=== PATIENT | female | born 1950 | race Caucasian/White ===

== ENCOUNTER 2019-06-13 19:28 | Emergency (ER) | payer MEDICARE, MEDICAID ==
[2019-06-13] MEDS ORDERED: Lidocaine 2% w/ EPI 1:200,000* 20 ML SDV VIAL ONE (19:38)
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
[2019-06-13] MEDS ORDERED: Lidocaine 2% w/ EPI 1:200,000* 20 ML SDV VIAL INJ ONE (19:44)
[2019-06-13] MEDS ORDERED: Tetan/Diph/Pertus SYR(Tdap)* 0.5 ML SYR(BOOSTRIX) use SYR contains LATEX IM ONE (20:47)
[2019-06-13 22:01] VITALS: BP 105/74
== END 2019-06-13 22:01 | disposition home or self-care (01) ==
LOC: ED 19:28
DX: S01.81XA Laceration without foreign body of other part of head, initial encounter (principal); I10 Essential (primary) hypertension; E78.00 Pure hypercholesterolemia, unspecified; I48.91 Unspecified atrial fibrillation; E11.9 Type 2 diabetes mellitus without complications; M10.9 Gout, unspecified; E78.5 Hyperlipidemia, unspecified; I99.8 Other disorder of circulatory system; M25.562 Pain in left knee; W19.XXXA Unspecified fall, initial encounter; Y92.9 Unspecified place or not applicable
CPT/HCPCS: 12001; 70450; 70486; 90471; 90715; 96374; 99283

== ENCOUNTER 2019-06-25 11:04 | Emergency (ER) | payer MEDICARE, MEDICAID ==
--- OUTSIDE RECORDS SUMMARY | 2019-06-25 11:11 | XMS REPORT | Continuity of Care Document ---
:1950 External Reference #:[id number] Author Name Deneen Cox N.P. (transmitted by agent of provider Yazmin Ho) Address [facility] [place] [address] Care Team Providers Name Role Phone Fritz Galvin MD - Internal Care Team Information Parts Sales Counterperson [phone] Medicine Problems Description No Information Available Social History Type Date Description Comments Sex Unknown Tobacco Use Start: Unknown Never Smoked Cigarettes Smoking Status Reviewed: 06/16/19 Never Smoked Cigarettes ETOH Use Denies alcohol use Tobacco Use Start: Unknown Patient has never smoked Recreational Drug Use Denies Drug Use Exercise Type/Frequency Exercises rarely Allergies, Adverse Reactions, Alerts Active Allergies Reaction Severity Comments Date Antihystamines high BP 09/09/2014 Medications Active Medications SIG Qnty Indications Ordering Provider Date Atenolol 1 by mouth daily 6tabs Deneen Cox, 06/16/2019 25mg Tablets for 3 days then N.P. every other day for 3 doses Xarelto 1 by mouth daily 90tabs Nazario Dean 01/14/2017 20mg Tablets Hailey Morfin Allopurinol 1 by mouth every Fritz Galvin, 11/13/2016 300mg Tablets day Am Citalopram 1 by mouth every Fritz Galvin, 11/13/2016 Hydrobromide day 40mg Tablets Pravastatin Sodium 1 tablet daily Fritz Galvin, 11/13/2016 40mg at bedtime Tablets Daily Vitamin 2 by mouth every Unknown Tablets day Ocuvite-Lutein 1 by mouth every Unknown 25mg day Capsules Metformin HCL 1 by mouth twice Unknown 500mg a day Tablets Tylenol Extra Strength 1-2 tabs by Unknown mouth every 6 500mg Tablets hours as needed Oxybutynin Chloride ER 1 tab by mouth Unknown every morning 10mg Tablets ER 24HR Immunizations Description No Information Available Vital Signs Date Vital Result Comment 06/16/2019 10:26am Height 62 inches 5'2" Weight 197.75 lb without shoes BP Systolic Sitting 92 mmHg Ra, lg cuff BP Diastolic Sitting 60 mmHg Ra, lg cuff BMI (Body Mass Index) 36.2 kg/m2 Ejection Fraction 55%-60% Echo 07/24/16 10/13/2017 11:02am Height 62 inches 5'2" Weight 214.75 lb w/shoes Heart Rate 82 /min BP Systolic Sitting 130 mmHg rue lg cuff BP Diastolic Sitting 84 mmHg rue lg cuff BMI (Body Mass Index) 39.3 kg/m2 Ejection Fraction 55-60% Echo 07/24/16 Results Description No Information Available Procedures Date Code Description Status 06/16/2019 73756 EKG Tracing & Interpretation Completed Medical Devices Description No Information Available Encounters Description No Information Available Assessments Date Code Description Provider 06/16/2019 I48.20 Chronic atrial fibrillation, unspecified Deneen Cox N.PGiuliano 06/16/2019 R94.31 Abnormal electrocardiogram [ECG] [EKG] Deneen Cox N.P. 06/16/2019 I10 Essential (primary) hypertension Deneen Cox N.PGiuliano 06/16/2019 I49.3 Ventricular premature depolarization Alicia Potter.Selene 06/16/2019 I95.1 Orthostatic hypotension Deneen Cox N.PGiuliano Plan of Treatment Future Appointment(s):06/22/2019 1:00 pm - Deneen Cox N.PGiuliano at [facility]06/16/2019 - Deneen Cox N.P.I48.20 Chronic atrial fibrillation, unspecifiedFollow up:[facility] 1 week with EKG.Recommendations:HR is low STOP Diltiazem STOP Atenolol-chlorthalidone START Atenolol 25mg daily for 3 days then every other day x 3 doses. STOP Benazepril.R94.31 Abnormal electrocardiogram [ECG] [EKG]I10 Essential (primary) hypertensionNew Labs:Lipid Panel - JFM, Ordered: 06/16/19CBC Auto Diff, Ordered: 06/16/19Magnesium, Ordered : 06/16/19Recommendations:BP is low. We are stopping a bunch of your medications.I49.3 Ventricular premature [id number] Orthostatic hypotension Functional Status Description No Information Available Mental Status Description No Information Available Referrals Description No Information Available
--- OUTSIDE RECORDS SUMMARY | 2019-06-25 11:11 | XMS REPORT | Continuity of Care Document ---
:1950 External Reference #:[id number] Author Name Deneen Cox N.P. (transmitted by agent of provider Ngoc Hanson) Address [facility] [place] [address] Care Team Providers Name Role Phone Fritz Galvin MD - Internal Care Team Information Compo Caster [phone] Medicine Problems Description No Information Available Social History Type Date Description Comments Sex Unknown Tobacco Use Start: Unknown Never Smoked Cigarettes Smoking Status Reviewed: 06/22/19 Never Smoked Cigarettes ETOH Use Denies alcohol use Tobacco Use Start: Unknown Patient has never smoked Recreational Drug Use Denies Drug Use Exercise Type/Frequency Exercises rarely Allergies, Adverse Reactions, Alerts Active Allergies Reaction Severity Comments Date Antihystamines high BP 09/09/2014 Medications Active Medications SIG Qnty Indications Ordering Provider Date Nystatin 1 libby to affected 15gm Deneen Cox, 06/22/2019 117202Timf/GM area bid N.P. Cream Xarelto 1 by mouth daily 90tabs Nazario Dean 01/14/2017 20mg Tablets Hailey Morfin Allopurinol 1 by mouth every Fritz Galvin, 11/13/2016 300mg day Am Tablets Citalopram 1 by mouth every Fritz Galvin, 11/13/2016 Hydrobromide day 40mg Tablets Pravastatin Sodium 1 tablet daily at Fritz Galvin, 11/13/2016 40mg bedtime MD Tablets Daily Vitamin 2 by mouth every Unknown Tablets day Ocuvite-Lutein 1 by mouth every Unknown 25mg day Capsules Metformin HCL 1 by mouth twice Unknown 500mg a day Tablets Tylenol Extra 1-2 tabs by mouth Unknown Strength every 6 hours as 500mg Tablets needed Oxybutynin Chloride 1 tab by mouth Unknown ER every morning 10mg Tablets ER 24HR History Medications Nystatin-Triamcinolone 1 libby bid to 30gm B37.2 Deneen Laura. 06/22/2019 - area under Foster, N.P. 06/22/2019 965040-8.1Unit/GM-% Cream breasts Atenolol 1 by mouth 6tabs Deneen S. 06/16/2019 - 25mg Tablets daily for 3 Foster, N.P. 06/22/2019 days then every other day for 3 doses Immunizations Description No Information Available Vital Signs Date Vital Result Comment 06/22/2019 11:57am Height 62 inches 5'2" Weight 196.00 lb with out shoes Heart Rate 70 /min BP Systolic Sitting 128 mmHg Lue lg cuff BP Diastolic Sitting 80 mmHg Lue lg cuff BP Systolic Standing 122 mmHg Lue lg cuff BP Diastolic Standing 74 mmHg Lue lg cuff Respiratory Rate 16 /min BMI (Body Mass Index) 35.8 kg/m2 Ejection Fraction 55-60% date 07/24/16 echo 06/16/2019 10:26am Height 62 inches 5'2" Weight 197.75 lb without shoes BP Systolic Sitting 92 mmHg Ra, lg cuff BP Diastolic Sitting 60 mmHg Ra, lg cuff BMI (Body Mass Index) 36.2 kg/m2 Ejection Fraction 55%-60% Echo 07/24/16 Results Description No Information Available Procedures Date Code Description Status 06/22/2019 06852 EKG Tracing & Interpretation Completed 06/16/2019 48309 EKG Tracing & Interpretation Completed Medical Devices Description No Information Available Encounters Type Date Location Provider Dx Diagnosis Office Visit 06/22/2019 [facility] Deneen Cox, I48.20 Chronic atrial 1:00p Of Fun House Attendant N.P. fibrillation, unspecified R94.31 Abnormal electrocardiogram [ECG] [EKG] I10 Essential (primary) hypertension I49.3 Ventricular premature depolarization B37.2 Candidiasis of skin and nail Office Visit 06/16/2019 11:00a [place] Deneen Dean I48.20 Chronic atrial Cardiology Kenny N.P. fibrillation, unspecified R94.31 Abnormal electrocardiogram [ECG] [EKG] I10 Essential (primary) hypertension I49.3 Ventricular premature depolarization I95.1 Orthostatic hypotension Assessments Date Code Description Provider 06/22/2019 I48.20 Chronic atrial fibrillation, Deneen Cox, N.P. unspecified 06/22/2019 R94.31 Abnormal electrocardiogram [ECG] [EKG] Deneen Cox, N.P. 06/22/2019 I10 Essential (primary) hypertension Deneen Cox N.P. 06/22/2019 I49.3 Ventricular premature depolarization Deneen Cox N.P. 06/22/2019 B37.2 Candidiasis of skin and nail Deneen Cox N.P. 06/16/2019 I48.91 Unspecified atrial fibrillation Nazario Morfin M.D. 06/16/2019 I48.20 Chronic atrial fibrillation, Deneen Cox, N.P. unspecified 06/16/2019 R94.31 Abnormal electrocardiogram [ECG] [EKG] Deneen Cox N.P. 06/16/2019 I10 Essential (primary) hypertension Deneen Cox N.P. 06/16/2019 I49.3 Ventricular premature depolarization Deneen Cox, N.P. 06/16/2019 I95.1 Orthostatic hypotension Deneen Cox, N.P. Plan of Treatment 06/22/2019 - Deneen Cox, N.P.I48.20 Chronic atrial fibrillation, unspecifiedRecommendations:Stop Atenolol after last dose. PLease have fasting lab work done in next 1-2 bactcG26.31 Abnormal electrocardiogram [ECG] [EKG]I10 Essential (primary) hypertensionRecommendations:BP improved off all of your medications.I49.3 Ventricular premature cqbfmpnwrhfcfrD68.2 Candidiasis of skin and nailNew Medication:Nystatin-Triamcinolone 488747-4.1 Unit/GM-% - 1 libby bid to area under breastsFollow up:OV 10/2019 [facility] please print lab order from Recommendations:Suggest you see PCP regarding fungal infection. Functional Status Description No Information Available Mental Status Description No Information Available Referrals Description No Information Available
[2019-06-25 11:20] VITALS: BP 134/111
--- NOTE | 2019-06-25 11:32 | UC ---
HPI Wound/Suture Re-check - HPI Summary HPI Summary: 68-year-old female presenting for suture removal lateral to right eye. Denies drainage or redness. Denies pain. Denies fever or chills. - History Of Current Complaint Stated Complaint: STITCH REMOVAL Hx Obtained From: Patient Pain Intensity: 0 - Allergies/Home Medications Allergies/Adverse Reactions: Allergies Allergy/AdvReac Type Severity Reaction Status Date / Time ANTIHISTAMINES AdvReac Intermediate See Comment Uncoded 06/25/19 11:21 Home Medications: Home Medications Allopurinol [Zyloprim-] 300 mg PO DAILY 10/05/14 [History Confirmed 06/25/19] Atenolol/Chlorthalidone [Atenolol/Chlorthalidone 50-25 mg-] 1 tab PO DAILY 10/05 [History Confirmed 06/25/19] Benazepril HCl [Lotensin-] 20 mg PO DAILY 10/05/14 [History Confirmed 06/25/19] Citalopram Hydrobromide [Celexa] 40 mg PO DAILY 10/05/14 [History Confirmed ] Multivitamin [Multivitamins] 1 cap PO DAILY 10/05/14 [History Confirmed 06/25/19 ] Pravastatin Sodium [Pravachol] 40 mg PO BEDTIME 10/05/14 [History Confirmed ] Preservision Ared 1 cap PO BID WITH MEALS 10/05/14 [History Confirmed 06/25/19] Rivaroxaban TAB(*) [Xarelto(*)] 20 mg PO DAILY 10/06/14 [History Confirmed 06/25] Benazepril HCl [Lotensin] 10 mg PO DAILY 03/03/19 [History Confirmed 06/25/19] dilTIAZem HCl [Dilt-Xr] 120 mg PO DAILY 03/03/19 [History Confirmed 06/25/19] metFORMIN* [Glucophage 500 MG TAB *] 500 mg PO BID WITH MEALS 03/03/19 [History Confirmed 06/25/19] PMH/Surg Hx/FS Hx/Imm Hx Endocrine History: Dyslipidemia Cardiovascular History: Hypertension - Surgical History Surgical History: Yes Surgery Procedure, Year, and Place: transesophageal echocardiogram, colonoscopy - Family History Known Family History: Positive: Cardiac Disease - Social History Alcohol Use: Rare Substance Use Type: None Smoking Status (MU): Never Smoked Tobacco Have You Smoked in the Last Year: No Review of Systems All Other Systems Reviewed And Are Negative: No Constitutional: Positive: Negative Skin: Positive: Other - sutures lateral to right eye Respiratory: Positive: Negative Cardiovascular: Positive: Negative Musculoskeletal: Positive: Negative Neurological/Mental Status: Positive: Negative Physical Exam - Summary Physical Exam Summary: Vital Signs Reviewed: Yes A+Ox3, no distress Eyes: Conjunctiva Clear ENT: Hearing grossly normal neck: supple Respiratory: Positive: No respiratory distress, No accessory muscle use Cardiovascular: skin color reflect adequate perfusion Musculoskeletal Exam: ROBLES x 4 without difficulty Neurological: Positive: Alert, ambulatory without difficulty Psychological: Positive: age appropriate behavior, flight of ideas Skin: Positive: healing laceration with 6 intact sutures lateral to right eye, no surrounding erythema, no drainage or fluctuance Vital Signs: Initial Vital Signs Temp 97.1 F 06/25/19 11:16 Pulse 64 06/25/19 11:16 Resp 21 06/25/19 11:16 BP 134/111 06/25/19 11:16 Pulse Ox 97 06/25/19 11:16 Course/Dx - Course Course Of Treatment: 6 sutures removed from laceration lateral to right eye. Healing well without signs of infection. Educated on care for laceration going forward and instructed to return with any new symptoms. Patient voiced understanding and agreed with treatment plan. - Diagnosis Provider Diagnosis: Encounter for removal of sutures Discharge ED - Sign-Out/Discharge Documenting (check all that apply): Patient Departure All imaging exams completed and their final reports reviewed: No Studies - Discharge Plan Condition: Stable Disposition: HOME Referrals: Fritz Galvin MD [Primary Care Provider] - If Needed Additional Instructions: You had your stitches removed today. Continue to wash the area gently with soap and water. Return or go to the emergency room if you experience any redness or drainage. - Billing Disposition and Condition Condition: STABLE Disposition: Home - Attestation Statements Provider Attestation: This patient was not seen by me. I was available for consult. Chart reviewed. MARNIE
== END 2019-06-25 11:49 | disposition home or self-care (01) ==
LOC: UCEAST 11:04
DX: S01.111D Laceration without foreign body of right eyelid and periocular area, subsequent encounter (principal); E78.5 Hyperlipidemia, unspecified; I10 Essential (primary) hypertension; Z79.899 Other long term (current) drug therapy; X58.XXXD Exposure to other specified factors, subsequent encounter

== ENCOUNTER 2024-03-28 23:32 | Observation (INO) ==
[2024-03-29 01:38] LABS: ABS Basophils 0.1 10^3/uL (0.0-0.1); ABS Eosinophils 0.1 10^3/uL (0.0-0.5); ABS Lymphocytes 1.1 10^3/uL (1.0-4.8); ABS Monocytes 1.4 10^3/uL (0.0-0.9); Eosinophil % 0.7 %; Hemoglobin 13.7 g/dL (11.5-14.3); Lymphocyte % 7.2 %; Mean Corpuscular Hemoglobin 31.4 pg (27-33); Mean Corpuscular Hgb Conc 34.2 g/dL (31-36); Mean Platelet Volume 7.7 fL (7.5-11.2); Platelet Count 383 10^3/uL (150-450); Red Blood Count 4.35 10^6/uL (3.63-4.92); Red Cell Distribution Width 14.5 % (12-17); White Blood Count 14.7 10^3/uL (3.8-11.8)
[2024-03-29 02:02] LABS: High Sens Troponin Baseline 25 pg/mL (<15)
[2024-03-29 02:50] LABS: ALT 28 U/L (7-52); AST 49 U/L (13-39); Acetaminophen < 15 mcg/mL; Albumin 4.1 g/dL (3.2-5.2); Albumin/Globulin Ratio 1.5 (1-3); Alcohol, S < 13 mg/dL (<13); Alkaline Phosphatase 86 U/L (35-149); Anion Gap 14 mmol/L (2-16); Blood Urea Nitrogen 60 mg/dL (6-24); CO2 Carbon Dioxide 27 mmol/L (22-32); Calcium 10.9 mg/dL (8.6-10.3); Chloride 100 mmol/L (101-111); Globulin 2.7 g/dL (2-4); Glucose 183 mg/dL (70-100); Potassium 4.5 mmol/L (3.5-5.0); Salicylate < 2.50 mg/dL (<30); Sodium 141 mmol/L (135-145); Total Bilirubin 0.7 mg/dL (0.2-1.0); Total Protein 6.8 g/dL (6.4-8.9); eGFR CKD-EPI 47.8 (>60)
[2024-03-29 03:03] LABS: Urine Appearance Turbid; Urine Bilirubin Negative (Negative); Urine Blood Negative (Negative); Urine Color Yellow; Urine Glucose Negative (Negative); Urine Ketones Trace (Negative); Urine Nitrite Negative (Negative); Urine Protein 1+ (>=30 mg/dL) (Negative); Urine Specific Gravity 1.022 (1.002-1.030); Urine Urobilinogen Negative (Negative)
[2024-03-29 03:07] LABS: Urine Bacteria Absent /HPF (Absent); Urine Red Blood Cell Trace(0-2/hpf) /HPF (0-Trace); Urine Squamous Epithelial Cell Present /HPF (Absent); Urine White Blood Cell 3+(>20/hpf) /HPF (0-Trace)
[2024-03-29 03:16] LABS: Urine Benzodiazepine Screen None Detected (None Detect); Urine Cannabinoids Screen None Detected (None Detect); Urine Opiates Screen None Detected (None Detect)
[2024-03-29 03:18] LABS: TSH Ultra Thyroid Stim Horm 1.39 mcIU/mL (0.34-5.60)
[2024-03-29 03:29] LABS: Lipase 17 U/L (11.0-82.0); Magnesium 1.7 mg/dL (1.9-2.7); Phosphorus 3.3 mg/dL (2.5-5.0)
[2024-03-29] MEDS: Magnesium Sulfate 2 gm BAG 2 GM/50 ML BAG IVPB ONE (03:36)
[2024-03-29] MEDS: NS 0.9% 1000 ml BAG 1,000 ML IV ONE (03:36)
[2024-03-29 03:47] LABS: Calcium (PTH Intact) 10.9 mg/dL (8.6-10.3)
[2024-03-29 03:55] LABS: High Sensitivity Troponin 1 Hr 23 pg/mL (<15)
[2024-03-29 04:14] LABS: C Reactive Protein 223.25 mg/L (<8.01)
[2024-03-29 04:55] LABS: Erythrocyte Sed Rate 75 mm/Hr (0-29)
[2024-03-29] MEDS: cefTRIAXone 1 gm/50 mL D5W 1 GM/50 ML BAG IV ONE (06:06)
[2024-03-29] MEDS ORDERED: Dextrose 50% Syringe 50 ml 25 GM/50 ML SYRINGE IV PUSH PRN (06:17)
[2024-03-29] MEDS: CMCS: Mirabegron 25 mg ER TAB (NF) PO SCH (08:52)
[2024-03-29 16:56] LABS: Body Fluid Total Nucleated 16271 /mcL
[2024-03-29 17:38] LABS: Body Fluid Mono 1 %; Body Fluid Source Synovial Fluid; Body Fluid Total Cells Counted 200
[2024-03-29 17:40] LABS: Body Fluid Appearance Cloudy; Body Fluid Color Yellow
[2024-03-30 06:01] LABS: ABS Basophils 0.1 10^3/uL (0.0-0.1); ABS Eosinophils 0.7 10^3/uL (0.0-0.5); ABS Monocytes 0.9 10^3/uL (0.0-0.9); ABS Neutrophils 5.9 10^3/uL (1.5-7.6); Hematocrit 36.4 % (35-45); Hemoglobin 12.5 g/dL (11.5-14.3); Lymphocyte % 20.6 %; Mean Corpuscular Hemoglobin 31.6 pg (27-33); Mean Corpuscular Hgb Conc 34.4 g/dL (31-36); Mean Platelet Volume 7.5 fL (7.5-11.2); Platelet Count 352 10^3/uL (150-450); Red Blood Count 3.96 10^6/uL (3.63-4.92); Red Cell Distribution Width 14.6 % (12-17); White Blood Count 9.5 10^3/uL (3.8-11.8)
[2024-03-30] MEDS: cefTRIAXone 1 gm/50 mL D5W 1 GM/50 ML BAG IV SCH (06:16)
[2024-03-30 06:49] LABS: Calcium 9.8 mg/dL (8.6-10.3); Creatinine, Serum 0.68 mg/dL (0.51-0.95); Magnesium 1.4 mg/dL (1.9-2.7); Potassium 4.5 mmol/L (3.5-5.0); eGFR CKD-EPI 91.9 (>60)
[2024-03-30] MEDS: Magnesium Sulf 4 GM/100 ML IV 4,000 MG/100 ML BAG IVPB ONE (08:42)
[2024-03-30] MEDS: Nystatin TOP POWDER 15 GM BTL TOPICAL SCH (13:36)
[2024-03-31 17:35] VITALS: BP 142/88
[2024-03-31 17:38] LABS: Glucose Confirmatory 445 mg/dL (70-100)
[2024-04-01 20:39] LABS: B. burgdorferi PCR Negative (Negative); B. garinii/B. afzellii PCR Negative (Negative); Lyme Disease Source LEFT KNEE FLUID
== END 2024-03-31 19:15 | disposition home health service (06) ==
LOC: ED 23:32 → EDHOLD 23:32 → SUATTDRO 03-29 06:12 → MED 03-29 12:54
PROVIDERS: ADMIT Internal Medicine; ATTEND Student in an Organized Health Care Education/Training Program